=== PATIENT | male | born 1985 | race Caucasian/White ===

== ENCOUNTER 2018-05-31 18:38 | Emergency (ER) | payer OTHER ==
[~2018-05-31 18:38] MED LIST: ALBU8.5H IH; AMOX-559 PO; PRED20TA6 PO
[2018-05-31 18:40] VITALS: BP 142/94
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
[2018-05-31] MEDS ORDERED: THYR120T10 PO (18:45)
[2018-05-31] MEDS ORDERED: TEST2.5G6 (18:45)
== END 2018-05-31 19:05 | disposition home or self-care (01) ==
LOC: ER 18:45
DX: Z77.21 Contact with and (suspected) exposure to potentially hazardous body fluids (principal)
CPT/HCPCS: 36415; 86703; 86706; 86803; 87340; 99282

== ENCOUNTER 2018-06-05 21:38 | Emergency (ER) | payer OTHER ==
[~2018-06-05 21:38] MED LIST changes: +TEST2.5G6; +THYR120T10 PO
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
[2018-06-05 21:43] VITALS: BP 155/103
[2018-06-05] MEDS ORDERED: RABIES VAC(HUMAN) DIPL 2.5/KIT IM ONLY ONE (22:05)
[2018-06-05] MEDS ORDERED: DIPHTH/TETANUS/ACEL. PERTUSSIS IM ONLY ONE (22:05)
[2018-06-05] MEDS ORDERED: BACITRACIN OINT 0.9 GM PKT TP ONE (22:10)
[2018-06-05] MEDS ORDERED: AMOX-559 PO (22:22)
== END 2018-06-05 22:40 | disposition home or self-care (01) ==
LOC: ER 22:06
DX: S61.052A Open bite of left thumb without damage to nail, initial encounter (principal); W55.01XA Bitten by cat, initial encounter
CPT/HCPCS: 90471; 90472; 90675; 90715; 99283; C9399

== ENCOUNTER 2018-06-08 21:22 | Emergency (ER) | payer OTHER ==
--- NOTE | 2018-06-08 21:32 | ER Report ---
History and Physical Time Seen By MD: 21:32 HPI/ROS CHIEF COMPLAINT: follow-up cat bite and rabies vaccine HISTORY OF PRESENT ILLNESS: This is a 32 year old male. Here for a second rabies vaccine. No problems with the cat bite, no signs of infection. Allergies: Coded Allergies: No Known Drug Allergies (Unverified , 06/08/18) Home Meds Active Scripts Amoxicillin/Pot Clav 875-125 Mg Tab (AUGMENTIN 875-125 TABLET) 1 Each Tablet, 1 TAB PO Q12H, #14 TAB Prov:TITA LOZADA DO 06/05/18 Albuterol Sulfate 90 Mcg/Act (PROAIR HFA 90 MCG/ACT) 8.5 Gm Hfa.aer.ad, 2 PUFF IH Q4-6H PRN for SHORTNESS OF BREATH, #1 INHALER 0 Refills Prov:JP DEL CID DNP, [facility] 05/26/18 Amoxicillin/Pot Clav 875-125 Mg Tab (AUGMENTIN 875-125 TABLET) 1 Each Tablet, 1 TAB PO Q12H for 10 Days, #20 TAB 0 Refills Prov:JP DEL CID DNP [facility] 05/26/18 Reported Medications TESTOSTERONE 1% Topical Gel (ANDROGEL 1% Topical Gel) 2.5 Gm Gel.packet 05/31/18 Thyroid,Pork (ARMOUR THYROID) 120 Mg Tablet, 120 MG PO DAILY 05/31/18 Discontinued Scripts Prednisone (PREDNISONE) 20 Mg Tablet, 1 TAB PO BID for 5 Days, #10 TAB 0 [facility] 05/26/18 Reviewed Nurses Notes: Yes Smoking Status: Never Smoker Hx Substance Use Disorder: No Hx Alcohol Use: No Constitutional Vital Sign - Last 24 Hours 06/08/18 21:46 Temp 98.1 Pulse 81 Resp 16 B/P (MAP) 158/105 Pulse Ox 96 O2 Delivery Room Air Physical Exam bite without signs of infection. Medical Decision Making ED Course/Re-evaluation ED Course vaccine given. Decision to Disposition Date: Jun 08, 2018 Decision to Disposition Time: 21:46 Depart Departure Latest Vital Signs Vital Signs Date Time Temp Pulse Resp B/P (MAP) Pulse Ox O2 Delivery O2 Flow Rate FiO2 06/08/18 21:46 98.1 81 16 158/105 96 Room Air Impression: Primary Impression: Cat bite of hand Condition: Improved Disposition: HOME OR SELF-CARE Patient Instructions: Rabies Vaccine (By injection) Problem Qualifiers Primary Impression: Cat bite of hand Encounter type: subsequent encounter Laterality: left Qualified Codes: S61.452D - Open bite of left hand, subsequent encounter; W55.01XD - Bitten by cat, subsequent encounter GILMAR LOPEZ MD Jun 08, 2018 21:32
[2018-06-08 21:46] VITALS: BP 158/105
[2018-06-08] MEDS ORDERED: RABIES VAC(HUMAN) DIPL 2.5/KIT IM ONLY ONE (22:20)
== END 2018-06-08 22:48 | disposition home or self-care (01) ==
LOC: ER 21:52
DX: S61.452D Open bite of left hand, subsequent encounter (principal); W55.01XD Bitten by cat, subsequent encounter
CPT/HCPCS: 90471; 90675; 99282

== ENCOUNTER → 2018-07-06 | Outpatient (CLI) | payer OTHER ==
[~2018-07-06] MED LIST changes: +TES5T TOP
[2018-07-06 13:46] LABS: PLATELET COUNT, AUTOMATED 165 K/uL (150-450)
--- NOTE | 2018-07-06 13:53 | EKG ---
FACILITY: [facility] [place] PATIENT NAME: JUDI MILES : [id number] MR: [id number] V: [id number] EXAM DATE: ORDERING PHYSICIAN: TOMAS ERWIN TECHNOLOGIST: ОЛЬГА CHIN Test Reason : ARRYTHMIA Blood Pressure : / mmHG Vent. Rate : 085 BPM Atrial Rate : 085 BPM P-R Int : 150 ms QRS Dur : 092 ms QT Int : 366 ms P-R-T Axes : 079 078 056 degrees QTc Int : 435 ms Sinus rhythm with sinus arrhythmia with occasional premature ventricular complexes Otherwise normal ECG No previous ECGs available Confirmed by TOMAS ERWIN ([id number]) on 07/07/2018 9:36:38 AM Referred By: Confirmed By:TOMAS ERWIN
== END ==
LOC: RESP 13:14
PROVIDERS: ATTEND Emergency Medicine
DX: E03.9 Hypothyroidism, unspecified (principal); R20.8 Other disturbances of skin sensation
CPT/HCPCS: 36415; 82607; 85025